=== PATIENT | male | born 1955 | race Caucasian/White ===

== ENCOUNTER 2019-03-07 10:12 | Inpatient (IN) | payer BC ==
[2019-03-01 11:19] LABS: BASOPHILS % (AUTO) 0.8 % (0-1); EOSINOPHILS # (AUTO) 0.2 X10'3 (0-0.9); EOSINOPHILS % (AUTO) 3.2 % (0-6); LYMPHOCYTES # (AUTO) 1.8 X10'3 (1.1-4.8); LYMPHOCYTES % (AUTO) 32.6 % (21-51); MEAN CORPUSCULAR HEMOGLOBIN 32.9 PG (27.0-31.0); MEAN CORPUSCULAR HGB CONC 33.4 g/dL (33.0-36.5); MEAN CORPUSCULAR VOLUME 98.6 FL (78-98); MEAN PLATELET VOLUME 9.1 FL (7.4-10.4); MONOCYTES # (AUTO) 0.8 X10'3 (0-0.9); MONOCYTES % (AUTO) 14.4 % (2-12); NEUTROPHILS # (AUTO) 2.8 X10'3 (1.8-7.7); PRE OP HEMATOCRIT 44.5 % (42.0-52.0); PRE OP HEMOGLOBIN 14.8 g/dL (14.0-17.9); PRE OP PLATELET COUNT 220 X10'3 (140-440); RED BLOOD COUNT 4.52 X10'6 (4.70-6.10)
[2019-03-01 11:26] LABS: CLARITY,URINE CLEAR (Clear); COLOR,URINE YELLOW (Yellow); GLUCOSE, URINE NEGATIVE (Neg); KETONES,URINE NEGATIVE (Neg); LEUKOCYTE ESTERASE ,URINE NEGATIVE (Neg); NITRITES, URINE NEGATIVE (Neg); OCCULT BLOOD,URINE NEGATIVE (Neg); PH,URINE 5.5 (4.8-8.0); PROTEIN,URINE NEGATIVE (Neg); UROBILINOGEN,URINE 0.2 E.U/dL (0.2-1.0)
[2019-03-01 11:31] LABS: UA COLLECTION TYPE NON-SPECIFIED
[2019-03-01 11:43] LABS: ALBUMIN/GLOBULIN RATIO 1.1 (1.1-1.5); ALKALINE PHOSPHATASE 79 IU/L (46-116); BLOOD UREA NITROGEN 25 MG/DL (7-18); BUN/CREATININE RATIO 25.8 (5.4-32.0); CALCIUM 9.5 MG/DL (8.5-10.1); CHLORIDE 101 MMOL/L (99-107); CREATININE 0.97 MG/DL (0.60-1.10); PRE OP ALT 39 U/L (30-65); PRE OP ANION GAP 6 (8-16); PRE OP AST 19 U/L (10-37); PRE OP BILIRUB, TOTAL 0.6 MG/DL (0.0-1.0); PRE OP GLUCOSE 116 MG/DL (70-104); PRE OP POTASSIUM 3.9 MMOL/L (3.4-5.1); PRE OP SODIUM 135 MMOL/L (135-145); TOTAL CARBON DIOXIDE 28.5 MMOL/L (24-32); TOTAL PROTEIN 7.6 G/DL (6.4-8.2); eGFR 78 ML/MIN
[2019-03-07] VITALS (17 sets, daily range): BP systolic 120–141; BP diastolic 68–92
[~2019-03-07] VITALS: Ht 167.6 cm; Wt 92.3 kg
[~2019-03-07 10:12] MED LIST: ASPI81TA52 PO; CALC-1051 PO; FERR325T32 PO; HYDR25TA4 PO; LEVO125T PO; LISI40TA4 PO; MELO-102 PO; OMEP20TA23 PO
[2019-03-07] MEDS ORDERED: cefazolin/dext.iso 2gm/100 ML IV ONE (11:30)
[2019-03-07] MEDS ORDERED: famotidine 20mg tablet PO ONE (11:30)
[2019-03-07] MEDS ORDERED: gabapentin 300mg capsule PO ONE (11:30)
[2019-03-07] MEDS ORDERED: tranexamic acid inj. 1,500 MG in normal saline 100ml IV soln 100 ML IV ONE (11:30)
[2019-03-07] MEDS ORDERED: ringers solution, lacted 1,000 ML IV SCH ×2 (11:30→13:03)
[2019-03-07] MEDS ORDERED: oxyCODONE SR 10mg (sust. release) tab PO ONE (11:30)
[2019-03-07] MEDS ORDERED: celeCOXIB 100mg capsule PO ONE (11:30)
[2019-03-07] MEDS ORDERED: acetaminophen 325mg tablet PO ONE (11:30)
[2019-03-07] MEDS ORDERED: morphine 4 MG/ML inj SYRINge IV PRN ×2 (13:05)
[2019-03-07] MEDS ORDERED: meperidine/PF 25mg/ml syringe IV PRN ×3 (13:05)
[2019-03-07] MEDS ORDERED: proCHLORperazine 10 MG/2 ml inj IV PRN (13:05)
[2019-03-07] MEDS ORDERED: ondansetron/PF 4mg/2ml inj IV PRN (13:05)
[2019-03-07] MEDS ORDERED: ROPIVAcaine 0.5% (5mg/ml) 30ml vial ONE ×2 (13:39→14:12)
[2019-03-07] MEDS ORDERED: fentaNYL/PF 50MCG/1 ML 2ML syringe ONE (14:01)
[2019-03-07] MEDS ORDERED: MIDAZolam 1mg/ml 10ml vial ONE (14:01)
[2019-03-07] MEDS ORDERED: propofol inj 20 ML IV ONE (14:12)
[2019-03-07] MEDS ORDERED: ceFAZolin 1000mg inj ONE (15:33)
[2019-03-07] MEDS ORDERED: HYDROmorphone 1 mg/ml syringe IV PRN (16:20)
[2019-03-07] MEDS ORDERED: acetaminophen 325mg tablet PO PRN (16:20)
[2019-03-07] MEDS ORDERED: diphenhydrAMINE 25mg capsule PO PRN ×2 (16:20)
[2019-03-07] MEDS ORDERED: bisacodyl 10mg suppository rectal RC PRN (16:20)
[2019-03-07] MEDS ORDERED: magnesium hydroxide 30ml (MOM) UD suspension PO PRN (16:20)
--- NOTE | 2019-03-07 16:42 | NUR ---
Received from OR via , accompanied by Anesthesiologist DR FOX and report given by Anesthesiolgist. AWAKENS TO VOICE. VITALS STABLE. DRESSING DI. TOM PAIN. CAROLYN CLARK. YUSUF WITH CLEAR FLORECENT URINE. Addendum: 03/07/19 at 1705 by Roger Alexander RN THE NOTE DONE AT 1642 WAS ON THE WRONG PT SO PLEASE DISREGARD. ALSO INITIAL ASSESMENT WAS FROM WRONG PT
--- NOTE | 2019-03-07 17:21 | NUR ---
received report from jacobo ruano in recovery
--- NOTE | 2019-03-07 18:00 | NUR ---
pt arrived on floor in ortho
--- NOTE | 2019-03-07 18:00 | NUR ---
Discharge criteria met, report to receiving floor. Transferred to room in stable condition.
[2019-03-07] MEDS: oxyCODONE/APAP 10/325mg tablet PO PRN (18:07)
--- NOTE | 2019-03-07 18:44 | NUR ---
gave report to november,
[2019-03-07] MEDS: sennosides 8.6mg tablet PO SCH (21:00)
[2019-03-07] MEDS: gabapentin 300mg capsule PO SCH (21:12)
[2019-03-07] MEDS: ascorbic acid 500mg tablet PO SCH (21:12)
[2019-03-07] MEDS: potassium cl 20mEq in 1/2 NS 1,000 ML IV SCH (21:13)
[2019-03-07] MEDS: ondansetron/PF 4mg/2ml inj IV PRN (22:20)
[2019-03-07] MEDS: ceFAZolin 1GM/D5W- ADD-VANTAGE 50 ML IV SCH (23:30)
[2019-03-08] VITALS (7 sets, daily range): BP systolic 108–126; BP diastolic 53–74
[2019-03-08] MEDS: potassium cl 20mEq in 1/2 NS 1,000 ML IV SCH ×3 (00:20→14:16)
[2019-03-08] MEDS: oxyCODONE/APAP 10/325mg tablet PO PRN ×3 (02:12→10:18)
[2019-03-08] MEDS: ondansetron/PF 4mg/2ml inj IV PRN (04:27)
--- NOTE | 2019-03-08 06:05 | NUR ---
received report from pasha, rn
[2019-03-08 06:54] LABS: BASOPHILS % (AUTO) 0.1 % (0-1); EOSINOPHILS % (AUTO) 0 % (0-6); HEMATOCRIT 36.6 % (42.0-52.0); HEMOGLOBIN 12.3 g/dl (14.0-17.9); LYMPHOCYTES # (AUTO) 0.9 X10'3 (1.1-4.8); LYMPHOCYTES % (AUTO) 12.5 % (21-51); MEAN CORPUSCULAR HEMOGLOBIN 33.2 PG (27.0-31.0); MEAN CORPUSCULAR HGB CONC 33.5 g/dL (33.0-36.5); MEAN CORPUSCULAR VOLUME 99.2 FL (78-98); MEAN PLATELET VOLUME 9.3 FL (7.4-10.4); MONOCYTES # (AUTO) 0.5 X10'3 (0-0.9); NEUTROPHILS # (AUTO) 6.1 X10'3 (1.8-7.7); NEUTROPHILS % (AUTO) 80.4 % (42-75); PLATELET COUNT 223 X10'3 (140-440); RED BLOOD COUNT 3.69 X10'6 (4.70-6.10); RED CELL DISTRIBUTION WIDTH 12.7 % (11.5-14.5); WHITE BLOOD COUNT 7.5 X10'3 (4.5-11.0)
[2019-03-08 07:03] LABS: ANION GAP 9 (8-16); CHLORIDE 103 MMOL/L (99-107); POTASSIUM 4.6 MMOL/L (3.5-5.1); SODIUM 136 MMOL/L (135-145)
[2019-03-08] MEDS ORDERED: non-formulary drug (Lisinopril* 1 TAB) PO SCH (08:00)
[2019-03-08] MEDS ORDERED: non-formulary drug (Omeprazole Magnesium (Prilosec Otc) 1 TAB) PO SCH (08:00)
[2019-03-08] MEDS: ascorbic acid 500mg tablet PO SCH ×2 (08:40→20:07)
[2019-03-08] MEDS: pantoprazole 40mg Tablet.DR PO SCH (08:40)
[2019-03-08] MEDS: HYDROchlorothiazide 25mg tablet PO SCH (08:40)
[2019-03-08] MEDS: levoTHYROXINE 125mcg tablet PO SCH (08:41)
[2019-03-08] MEDS: gabapentin 300mg capsule PO SCH ×3 (08:41→20:06)
[2019-03-08] MEDS: multivitamins, therapeutics tablet PO SCH (08:41)
[2019-03-08] MEDS: lisinopril 20mg tablet PO SCH (08:44)
[2019-03-08] MEDS: ceFAZolin 1GM/D5W- ADD-VANTAGE 50 ML IV SCH (08:47)
[2019-03-08] MEDS ORDERED: warfarin 5mg tablet PO ONE (10:00)
[2019-03-08] MEDS ORDERED: HYDROcodone/acetaminophen 10/325mg tab PO PRN (13:35)
--- NOTE | 2019-03-08 15:44 | NUR ---
Joint replacement consult: Multiple attempts with pt at bedside however pt unavailable and working with PT. Written protein ed with RD contact information left at patient's bedside. Pt currently on regular diet pending documented PO intake. Will continue to follow. Addendum: 03/08/19 at [address] Amended: Links added.
[2019-03-08] MEDS: HYDROcodone/acetaminophen 10/325mg tab PO PRN ×2 (17:58→22:05)
--- NOTE | 2019-03-08 18:05 | NUR ---
gave report to jacobo portillo
[2019-03-08] MEDS: sennosides 8.6mg tablet PO SCH (20:06)
[2019-03-08] MEDS: celeCOXIB 100mg capsule PO SCH (20:07)
[2019-03-09] MEDS: HYDROcodone/acetaminophen 10/325mg tab PO PRN ×3 (02:30→11:27)
[2019-03-09 06:00] VITALS: BP 100/70
[2019-03-09 06:02] LABS: BASOPHILS % (AUTO) 0.3 % (0-1); EOSINOPHILS # (AUTO) 0.2 X10'3 (0-0.9); EOSINOPHILS % (AUTO) 2.3 % (0-6); HEMATOCRIT 33.3 % (42.0-52.0); HEMOGLOBIN 11.3 g/dl (14.0-17.9); LYMPHOCYTES # (AUTO) 1.9 X10'3 (1.1-4.8); LYMPHOCYTES % (AUTO) 25.3 % (21-51); MEAN CORPUSCULAR HEMOGLOBIN 33.6 PG (27.0-31.0); MEAN CORPUSCULAR VOLUME 98.7 FL (78-98); MEAN PLATELET VOLUME 9.3 FL (7.4-10.4); MONOCYTES # (AUTO) 0.8 X10'3 (0-0.9); NEUTROPHILS # (AUTO) 4.7 X10'3 (1.8-7.7); NEUTROPHILS % (AUTO) 61.1 % (42-75); PLATELET COUNT 200 X10'3 (140-440); RED BLOOD COUNT 3.38 X10'6 (4.70-6.10); RED CELL DISTRIBUTION WIDTH 12.5 % (11.5-14.5); WHITE BLOOD COUNT 7.7 X10'3 (4.5-11.0)
--- NOTE | 2019-03-09 06:35 | NUR ---
Morales catheter and Hemovac drain d/c'd per ordered protocol.
--- NOTE | 2019-03-09 06:42 | NUR ---
report given to jacobo Lin.
[2019-03-09] MEDS: levoTHYROXINE 125mcg tablet PO SCH (07:29)
[2019-03-09] MEDS: lisinopril 20mg tablet PO SCH (07:58)
[2019-03-09] MEDS: ascorbic acid 500mg tablet PO SCH (07:58)
[2019-03-09] MEDS: HYDROchlorothiazide 25mg tablet PO SCH (07:58)
[2019-03-09] MEDS: gabapentin 300mg capsule PO SCH (07:59)
[2019-03-09] MEDS: multivitamins, therapeutics tablet PO SCH (07:59)
[2019-03-09] MEDS: pantoprazole 40mg Tablet.DR PO SCH (07:59)
[2019-03-09] MEDS: celeCOXIB 100mg capsule PO SCH (07:59)
[2019-03-09] MEDS ORDERED: ASPI-1264 PO (08:10)
[2019-03-09] MEDS ORDERED: HYDR-3972 PO (08:12)
[2019-03-09] MEDS ORDERED: WALKERFR (08:13)
[2019-03-09 10:00] VITALS: BP 114/61
[2019-03-09] MEDS ORDERED: warfarin 7.5mg tablet PO ONE (10:00)
[2019-03-09] MEDS ORDERED: acetaminophen 325mg tablet PO PRN (16:20)
== END 2019-03-09 14:00 | disposition home health service (06) | DRG 470 ==
LOC: PAS IN 11:33 → EDSTATUS 14:00 → ORTHO 4S 17:50
PROVIDERS: ADMIT Specialist; ATTEND Specialist
PROC: 3E0T3BZ Introduction of Anesthetic Agent into Peripheral Nerves and Plexi, Percutaneous Approach (ICD-10-PCS; 2019-03-07)
PROC: 0SRC0J9 Replacement of Right Knee Joint with Synthetic Substitute, Cemented, Open Approach (ICD-10-PCS; principal; 2019-03-07 14:00)
DX: M17.0 Bilateral primary osteoarthritis of knee (principal); D62 Acute posthemorrhagic anemia; M87.88 Other osteonecrosis, other site; E03.9 Hypothyroidism, unspecified; I10 Essential (primary) hypertension; K21.9 Gastro-esophageal reflux disease without esophagitis; M21.161 Varus deformity, not elsewhere classified, right knee; E66.9 Obesity, unspecified; Z68.32 Body mass index [BMI] 32.0-32.9, adult; Z90.49 Acquired absence of other specified parts of digestive tract; Z79.899 Other long term (current) drug therapy; Z79.82 Long term (current) use of aspirin
CPT/HCPCS: Z7506; Z7508; 36415; 73560; 80051; 80053; 81003; 82948; 84443; 85025; 85610; 85730; 87081; 93005; 97110; 97116; 97162; 97530; A6449; A6455; A7000; C1713; C1758; C1776; G0378; J0690; J2250; J2405; J2704; J2795; J3010; J3480; J7120